=== PATIENT | male | born 1955 | race African-American/Black ===

== ENCOUNTER → 2017-07-08 12:14 | Outpatient (CLI) | payer MEDICARE, MEDICAID, SELFPAY ==
[2017-07-08 14:58] LABS: Absolute Lymphocyte Count 4.71 X10^3/ul (0.83-4.51); Basophil# 0.02 X10^3/uL; Basophil% 0.2 % (0-1); Eosinophil# 0.13 X10^3/uL; Eosinophils% 1.3 % (0-5); Hematocrit 48.8 % (40-54); Hemoglobin 15.5 g/dl (13.0-16.5); Lymphocyte # 4.71 X10^3/ul (4.0); Lymphocyte % 47.8 % (19-41); Mean Corp Hgb Conc 31.8 g/gl (32-36); Mean Corpuscular Hgb 27.7 pg (27.0-32.0); Mean Corpuscular Volume 87.3 fL (80-94); Mean Platelet Vol. 10.2 fl (6.2-12.0); Monocyte# 0.97 X10^3/uL; Monocyte% 9.8 % (0-10); Neutrophil # 3.98 X10^3/uL (2.7-7.7); Neutrophil % 40.5 % (47-70); POSITIVE COUNT NO; POSITIVE DIFFERENTIAL NO; POSITIVE MORPHOLOGY NO; Platelet Count 364 K/mm3 (150-450); RBC Distribution Width CV 14.2 % (11.6-14.6); RBC Distribution Width SD 45.2 fl (35.1-43.9); Red Blood Count 5.59 M/mm3 (4.6-6.2); White Blood Count 9.9 K/mm3 (4.4-11.0)
[2017-07-08 15:33] LABS: AST(SGOT) 37 U/L (15-37); Alanine Aminotransfer ALT/SGPT 57 U/L (16-61); Alkaline Phosphatase 49 U/L (45-117); Anion Gap 9 (5-15); BUN 20 mg/dL (7-18); Calcium,Total 9.4 mg/dL (8.5-10.1); Chloride 104 mmol/L (98-107); Creatinine, Serum 1.11 mg/dL (0.70-1.30); EST Glomerular Filtration Rate 72 mL/min (>60); Est Glom Filt Rate - Afr Amer 87 mL/min (>60); Globulin 3.9 g/dL (2.2-4.2); Glucose 112 mg/dL (74-106); PSA,Total - Annual Screen 0.73 ng/mL (0.00-4.00); Potassium 4.1 mmol/L (3.5-5.1); Protein, Total 7.9 g/dL (6.4-8.2); Sodium Level 138 mmol/L (136-145); Thyroid Stim Hormone (TSH) 2.54 uIU/mL (0.358-3.74)
[2017-07-09 08:53] LABS: Hep C Antibodies <0.1 s/co ratio (0.0-0.9)
== END ==
PROVIDERS: Family Provider Family Medicine Geriatric Medicine; PCP Family Medicine Geriatric Medicine; Visit Provider Family Medicine Geriatric Medicine
DX: I10 Essential (primary) hypertension (principal); F52.8 Other sexual dysfunction not due to a substance or known physiological condition; Z12.5 Encounter for screening for malignant neoplasm of prostate; Z13.89 Encounter for screening for other disorder
CPT/HCPCS: 36415; 80053; 84153; 84403; 84443; 85025; 86803; G0103

== ENCOUNTER → 2018-01-08 09:31 | Outpatient (CLI) | payer MEDICARE, MEDICAID, SELFPAY ==
[2018-01-08 12:25] LABS: Absolute Lymphocyte Count 4.23 X10^3/ul (0.83-4.51); Basophil# 0.02 X10^3/uL; Basophil% 0.2 % (0-1); Eosinophils% 0.9 % (0-5); Hematocrit 45.3 % (40-54); Hemoglobin 14.9 g/dl (13.0-16.5); Lymphocyte # 4.23 X10^3/ul (4.0); Lymphocyte % 36.7 % (19-41); Mean Corp Hgb Conc 32.9 g/gl (32-36); Mean Corpuscular Hgb 27.7 pg (27.0-32.0); Mean Corpuscular Volume 84.4 fL (80-94); Mean Platelet Vol. 10.3 fl (6.2-12.0); Monocyte# 1.11 X10^3/uL; Monocyte% 9.6 % (0-10); Neutrophil # 6.04 X10^3/uL (2.7-7.7); Neutrophil % 52.3 % (47-70); POSITIVE COUNT NO; POSITIVE DIFFERENTIAL NO; POSITIVE MORPHOLOGY NO; Platelet Count 338 K/mm3 (150-450); RBC Distribution Width CV 14.6 % (11.6-14.6); RBC Distribution Width SD 44.1 fl (35.1-43.9); Red Blood Count 5.37 M/mm3 (4.6-6.2); White Blood Count 11.5 K/mm3 (4.4-11.0)
[2018-01-08 12:54] LABS: AST(SGOT) 35 U/L (15-37); Alanine Aminotransfer ALT/SGPT 49 U/L (16-61); Albumin, Serum 4.2 g/dL (3.2-5.0); Alkaline Phosphatase 46 U/L (45-117); Anion Gap 12 (5-15); BUN 20 mg/dL (7-18); BUN/Creat Ratio 18.9 RATIO (10-20); Calcium,Total 9.8 mg/dL (8.5-10.1); Chloride 103 mmol/L (98-107); Creatinine, Serum 1.06 mg/dL (0.70-1.30); EST Glomerular Filtration Rate 76 mL/min (>60); Est Glom Filt Rate - Afr Amer 91 mL/min (>60); Globulin 4.2 g/dL (2.2-4.2); Glucose 108 mg/dL (74-106); Potassium 3.8 mmol/L (3.5-5.1); Protein, Total 8.4 g/dL (6.4-8.2); Sodium Level 137 mmol/L (136-145); Thyroid Stim Hormone (TSH) 1.96 uIU/mL (0.358-3.74)
== END ==
PROVIDERS: Family Provider Family Medicine Geriatric Medicine; PCP Family Medicine Geriatric Medicine; Visit Provider Family Medicine Geriatric Medicine
DX: I10 Essential (primary) hypertension (principal); F52.8 Other sexual dysfunction not due to a substance or known physiological condition
CPT/HCPCS: 36415; 80053; 84403; 84443; 85025

== ENCOUNTER → 2018-07-09 09:16 | Outpatient (CLI) | payer MEDICARE, SELFPAY ==
[2018-07-09 13:02] LABS: Absolute Lymphocyte Count 3.63 X10^3/ul (0.83-4.51); Absolute Neutrophil Count 4.4 X10^3/uL (2.0-7.7); Basophil# 0.04 X10^3/uL; Basophil% 0.4 % (0-1); Eosinophil# 0.15 X10^3/uL; Eosinophils% 1.6 % (0-5); Hemoglobin 14.8 g/dl (13.0-16.5); Lymphocyte # 3.63 X10^3/ul (4.0); Lymphocyte % 38.5 % (19-41); Mean Corp Hgb Conc 32.9 g/gl (32-36); Mean Corpuscular Hgb 27.4 pg (27.0-32.0); Mean Corpuscular Volume 83.2 fL (80-94); Mean Platelet Vol. 10.1 fl (6.2-12.0); Monocyte# 1.16 X10^3/uL; Monocyte% 12.3 % (0-10); Neutrophil # 4.44 X10^3/uL (2.7-7.7); Platelet Count 379 K/mm3 (150-450); RBC Distribution Width CV 15.4 % (11.6-14.6); RBC Distribution Width SD 46.6 fl (35.1-43.9); Red Blood Count 5.41 M/mm3 (4.6-6.2); White Blood Count 9.4 K/mm3 (4.4-11.0)
[2018-07-09 13:03] LABS: POSITIVE COUNT NO; POSITIVE DIFFERENTIAL NO; POSITIVE MORPHOLOGY NO
[2018-07-09 13:32] LABS: ALB/GLOB Ratio 1.1 RATIO (0.9-2.4); AST(SGOT) 34 U/L (15-37); Alanine Aminotransfer ALT/SGPT 51 U/L (16-61); Albumin, Serum 4.1 g/dL (3.2-5.0); Alkaline Phosphatase 54 U/L (45-117); Anion Gap 13 (5-15); BUN 16 mg/dL (7-18); BUN/Creat Ratio 17.5 RATIO (10-20); Calcium,Total 9.4 mg/dL (8.5-10.1); Chloride 102 mmol/L (98-107); Creatinine, Serum 0.91 mg/dL (0.70-1.30); EST Glomerular Filtration Rate 90 mL/min (>60); Est Glom Filt Rate - Afr Amer 108 mL/min (>60); Globulin 3.8 g/dL (2.2-4.2); Glucose 96 mg/dL (74-106); Potassium 3.8 mmol/L (3.5-5.1); Protein, Total 7.9 g/dL (6.4-8.2); Sodium Level 139 mmol/L (136-145); Thyroid Stim Hormone (TSH) 1.67 uIU/mL (0.358-3.74)
== END ==
PROVIDERS: Family Provider Family Medicine Geriatric Medicine; PCP Family Medicine Geriatric Medicine; Visit Provider Family Medicine Geriatric Medicine
DX: I10 Essential (primary) hypertension (principal); F52.8 Other sexual dysfunction not due to a substance or known physiological condition; Z12.5 Encounter for screening for malignant neoplasm of prostate
CPT/HCPCS: 36415; 80053; 84153; 84403; 84443; 85025; G0103

== ENCOUNTER → 2019-01-05 08:44 | Outpatient (CLI) | payer MEDICARE, SELFPAY ==
[2019-01-05 11:27] LABS: Absolute Lymphocyte Count 3.35 X10^3/uL (0.83-4.51); Absolute Neutrophil Count 4.4 X10^3/uL (2.0-7.7); Basophil# 0.04 X10^3/uL; Basophil% 0.4 % (0-1); Eosinophil# 0.09 X10^3/uL; Hematocrit 43.5 % (40-54); Hemoglobin 14.1 g/dL (13.0-16.5); Lymphocyte # 3.35 X10^3/ul (4.0); Lymphocyte % 37.6 % (19-41); Mean Corp Hgb Conc 32.4 g/dL (32-36); Mean Corpuscular Hgb 27.8 pg (27.0-32.0); Mean Corpuscular Volume 85.6 fL (80-94); Mean Platelet Vol. 9.9 fl (6.2-12.0); Monocyte# 1.03 X10^3/uL; Monocyte% 11.6 % (0-10); NRBC Flagged by Analyzer 0 % (0-5); Neutrophil # 4.35 X10^3/uL (2.7-7.7); Platelet Count 348 K/mm3 (150-450); RBC Distribution Width CV 13.3 % (11.6-14.6); RBC Distribution Width SD 41.9 fl (35.1-43.9); Red Blood Count 5.08 M/mm3 (4.6-6.2); White Blood Count 8.9 K/mm3 (4.4-11.0)
[2019-01-05 11:48] LABS: Vitamin D,25 Hydroxy 29.8 ng/mL (29.95-100.01)
[2019-01-05 11:53] LABS: AST(SGOT) 29 U/L (15-37); Alanine Aminotransfer ALT/SGPT 43 U/L (16-61); Alkaline Phosphatase 48 U/L (45-117); Anion Gap 8 (5-15); BUN 17 mg/dL (7-18); BUN/Creat Ratio 18.2 RATIO (10-20); Calcium,Total 9.7 mg/dL (8.5-10.1); Chloride 103 mmol/L (98-107); Creatinine, Serum 0.94 mg/dL (0.70-1.30); EST Glomerular Filtration Rate 87 mL/min (>60); Est Glom Filt Rate - Afr Amer 105 mL/min (>60); Globulin 4.1 g/dL (2.2-4.2); Glucose 113 mg/dL (74-106); Potassium 3.7 mmol/L (3.5-5.1); Protein, Total 8.1 g/dL (6.4-8.2); Sodium Level 137 mmol/L (136-145); Thyroid Stim Hormone (TSH) 1.88 uIU/mL (0.358-3.74)
== END ==
PROVIDERS: Family Provider Family Medicine Geriatric Medicine; PCP Family Medicine Geriatric Medicine; Visit Provider Family Medicine Geriatric Medicine
DX: I10 Essential (primary) hypertension (principal); E55.9 Vitamin D deficiency, unspecified; F52.8 Other sexual dysfunction not due to a substance or known physiological condition
CPT/HCPCS: 36415; 80053; 82306; 84403; 84443; 85025

== ENCOUNTER → 2019-07-10 08:38 | Outpatient (CLI) | payer MEDICARE, SELFPAY ==
[2019-07-10 13:03] LABS: Absolute Lymphocyte Count 3.39 X10^3/uL (0.83-4.51); Absolute Neutrophil Count 4.1 X10^3/uL (2.0-7.7); Basophil# 0.03 X10^3/uL; Basophil% 0.3 % (0-1); Eosinophil# 0.09 X10^3/uL; Hematocrit 45.9 % (40-54); Lymphocyte # 3.39 X10^3/ul (4.0); Lymphocyte % 38.3 % (19-41); Mean Corp Hgb Conc 32.7 g/dL (32-36); Mean Corpuscular Hgb 28.2 pg (27.0-32.0); Mean Corpuscular Volume 86.3 fL (80-94); Mean Platelet Vol. 9.5 fl (6.2-12.0); Monocyte# 1.24 X10^3/uL; NRBC Flagged by Analyzer 0 % (0-5); Neutrophil # 4.07 X10^3/uL (2.7-7.7); Neutrophil % 46.2 % (47-70); Platelet Count 372 K/mm3 (150-450); RBC Distribution Width CV 13.8 % (11.6-14.6); RBC Distribution Width SD 42.9 fl (35.1-43.9); Red Blood Count 5.32 M/mm3 (4.6-6.2); White Blood Count 8.8 K/mm3 (4.4-11.0)
[2019-07-10 13:37] LABS: ALB/GLOB Ratio 1.1 RATIO (0.9-2.4); AST(SGOT) 33 U/L (15-37); Alanine Aminotransfer ALT/SGPT 49 U/L (16-61); Albumin, Serum 4.3 g/dL (3.2-5.0); Alkaline Phosphatase 48 U/L (45-117); Anion Gap 10 (5-15); BUN 21 mg/dL (7-18); BUN/Creat Ratio 21.4 RATIO (10-20); Calcium,Total 9.7 mg/dL (8.5-10.1); Chloride 103 mmol/L (98-107); Creatinine, Serum 0.98 mg/dL (0.70-1.30); EST Glomerular Filtration Rate 82 mL/min (>60); Est Glom Filt Rate - Afr Amer 99 mL/min (>60); Glucose 97 mg/dL (74-106); PSA,Total - Annual Screen 0.78 ng/mL (0.00-4.00); Potassium 3.8 mmol/L (3.5-5.1); Protein, Total 8.3 g/dL (6.4-8.2); Sodium Level 137 mmol/L (136-145); Thyroid Stim Hormone (TSH) 2.86 uIU/mL (0.358-3.74)
== END ==
PROVIDERS: PCP Family Medicine Geriatric Medicine; Referring Provider Family Medicine Geriatric Medicine; Visit Provider Family Medicine Geriatric Medicine
DX: I10 Essential (primary) hypertension (principal); Z12.5 Encounter for screening for malignant neoplasm of prostate; F52.8 Other sexual dysfunction not due to a substance or known physiological condition
CPT/HCPCS: 36415; 80053; 84153; 84403; 84443; 85025; G0103

== ENCOUNTER → 2020-01-15 09:34 | Outpatient (CLI) | payer MEDICARE, SELFPAY ==
[2020-01-15 12:11] LABS: Absolute Lymphocyte Count 4.26 X10^3/uL (0.83-4.51); Basophil# 0.06 X10^3/uL; Basophil% 0.5 % (0-1); Eosinophil# 0.14 X10^3/uL; Eosinophils% 1.3 % (0-5); Hematocrit 42.9 % (40-54); Hemoglobin 13.8 g/dL (13.0-16.5); Lymphocyte # 4.26 X10^3/ul (4.0); Lymphocyte % 38.8 % (19-41); Mean Corp Hgb Conc 32.2 g/dL (32-36); Mean Corpuscular Hgb 27.7 pg (27.0-32.0); Mean Platelet Vol. 9.6 fl (6.2-12.0); Monocyte% 13.7 % (0-10); NRBC Flagged by Analyzer 0 % (0-5); Neutrophil # 4.98 X10^3/uL (2.7-7.7); Neutrophil % 45.3 % (47-70); Platelet Count 365 K/mm3 (150-450); RBC Distribution Width SD 43.7 fl (35.1-43.9); Red Blood Count 4.99 M/mm3 (4.6-6.2)
[2020-01-15 13:02] LABS: ALB/GLOB Ratio 1.1 RATIO (0.9-2.4); AST(SGOT) 36 U/L (15-37); Alanine Aminotransfer ALT/SGPT 40 U/L (16-61); Albumin, Serum 3.8 g/dL (3.2-5.0); Alkaline Phosphatase 47 U/L (45-117); Anion Gap 9 (5-15); BUN 19 mg/dL (7-18); BUN/Creat Ratio 19.9 RATIO (10-20); Calcium,Total 9.2 mg/dL (8.5-10.1); Chloride 103 mmol/L (98-107); Creatinine, Serum 0.96 mg/dL (0.70-1.30); EST Glomerular Filtration Rate 85 mL/min (>60); Est Glom Filt Rate - Afr Amer 102 mL/min (>60); Globulin 3.6 g/dL (2.2-4.2); Glucose 100 mg/dL (74-106); Potassium 4.1 mmol/L (3.5-5.1); Protein, Total 7.4 g/dL (6.4-8.2); Sodium Level 136 mmol/L (136-145)
== END ==
PROVIDERS: PCP Family Medicine Geriatric Medicine; Visit Provider Family Medicine Geriatric Medicine
DX: I10 Essential (primary) hypertension (principal); F52.8 Other sexual dysfunction not due to a substance or known physiological condition
CPT/HCPCS: 36415; 80053; 84403; 84443; 85025

== ENCOUNTER → 2020-07-14 09:41 | Outpatient (CLI) | payer MEDICARE, MEDICAID, SELFPAY ==
--- NOTE | 2020-07-14 09:43 | RAD_ITS ---
STUDY: X-RAY - LUMBAR SPINE REASON FOR EXAM: Male, 65 years old. SCIATICA TECHNIQUE: 3 view(s) of the lumbar spine were obtained. COMPARISON: None FINDINGS: There is straightening of the normal lumbar lordosis. There is no substantial scoliosis. There is a normal alignment of the vertebrae. Marked degree of disc space narrowing with subchondral sclerosis and spondylosis at the L5-S1 level. There is atherosclerotic calcification of the abdominal aorta without a demonstrated aneurysm. Calcification of the vas deferens. Calcified phleboliths are seen in the pelvis. RAD/Lumbar Spine 2 or 3 Views IMPRESSION: Moderate degree of disc space narrowing and spondylosis at the L5-S1 level. Loss of the normal lumbar lordosis. Electronically Signed: Jagdeep Cosby MD at 10:43 EST , Service support ,
== END ==
PROVIDERS: PCP Family Medicine Geriatric Medicine; Visit Provider Family Medicine Geriatric Medicine
DX: M54.30 Sciatica, unspecified side (principal)
CPT/HCPCS: 72100

== ENCOUNTER 2020-10-17 14:30 | Outpatient (RCR) | payer MEDICARE, MEDICAID, SELFPAY ==
--- NOTE | 2020-07-25 17:17 | HP.PTEVAL ---
Patient's Visit Information CLIFF GALVAN is a 65 year old M referred to Physical Therapy by Dr. Suleiman Quach MD with a diagnosis of SCIATICA. Date of Evaluation: 07/25/20 Physical Therapist: Diamond Smyth PT, Cert MDT - Visit Plan Frequency: 2-3x /Week Duration: 4-6 Weeks Plan: AQUATIC THERAPY FOR PAIN RELIEF, POSTURE CORRECTION/STRENGTHENING, INSTRUCTION IN APPROPRIATE BODY MECHANICS AND ACTIVITY MODIFICATIONS. DLS STARTING WITH A NEUTRAL SPINE PROGRESSING ROM TOLERATED. SHIRA LE ROM, STRETCHING AND STRENGTHENING. HEP INSTRUCTION. - Subjective Work/Leisure: UNEMPLOYEED. Disability: YES - THROAT CANCER AND LUNG CANCER. Present symptoms: SHIRA LOW BACK PAIN. RIGHT HIP, THIGH AND LEG PAIN. R LE NUMBNESS AND TINGLING. PATIENT REPORTS HIS R LE NUMBNESS GOES ALL THE WAY TO HIS TOES. Present since: ABOUT A YEAR AGO. Pain Scale: WORST 10/10, LEAST 7/10. Currently: 9/10. Commenced as a result of: HELPING NIECE MOVE. STATES HE WAS CARRYING TOO MUCH UP AND DOWN THE STEPS AND HE COULDN'T MOVE AFTERWARDS. Symptoms at onset: LOW BACK. Worse: STANDING UP, LIFTING - LIKE TRYING TO LIFT A CASE OF WATER, BENDING OVER, WALKING, GETTING DRESSED. Better: PAIN MEDICATION, SALLY KILLIAN, RECLINER. Disturbed sleep: YES. Previous history/Previous treatment: CHRONIC LBP. NO BACK SURGERY. H/O EVERARDO'S WITH THE LAST ONE BEING ABOUT 8 YEARS AGO BECAUSE THEY MOVED THE OFFICE. H/O GOING TO THE [facility]IROP[facility] A LOT. PATIENT REPORTS BACK SURGERY HAS BEEN RECOMMENDED IN THE PAST AND HE JUST DOESN'T WANT BACK SURGERY. Treatment this episode: PT REFERRAL. Coughing/sneezing/straining: NEGATIVE. Gait: TIME AND DISTANCE LIMITED DUE TO PAIN. PATIENT REPORTS THAT WHEN HE IS WALKING HE HAS TO STOP AND HOLD ON TO SOMETHING FOR AWHILE BEFORE HE CAN KEEP GOING BECAUSE HIS BACK AND R LEG GETS NUMB AND HE FEELS LIKE HIS LEGS ARE GOING TO GO OUT ON HIM. PATIENT REPORTS HE USE TO WALK ABOUT A MILE TWICE A DAY UNTIL THIS HAPPEND. Difficulty initiating urinatin: NO. Accidents: NO. Unexplained weight loss: NO. Imaging: RECENT LUMBAR X-RAY: Moderate degree of disc space narrowing and spondylosis at the L5-S1 level. Loss of the normal lumbar lordosis. REMOTE LUMBAR MRI 2014: IMPRESSION: Degenerative disc disease and spondylosis, again noted to predominantly. affect the L5-S1 intervertebral disc level, where there is redemonstration. of mild retrolisthesis, diffuse annular bulge/disc herniation, endplate. spondylosis and mild facet arthrosis, resulting in mild right greater than. left lateral recess and central canal stenosis and moderate bilateral. intervertebral neural foraminal narrowing with likely exiting nerve root. impingement. Please see level by level details above. Mild heterogeneity of marrow signal intensity may represent senescent. change/normal variant, but appears slightly more prominent than on the. previous study. If there is any clinical concern for subtle osseous. metastatic disease in this patient with known malignancies, consider. correlation with radionuclide bone scan. Presumed small bilateral renal cysts, which could be further evaluated with. ultrasound, if clinically indicated. PMH: H/0 THROAT CANCER - ABOUT 21 YEARS AGO. LUNG CANCER - ABOUT 20 YEARS AGO. BOTH THROAT AND LUNG CANCER WERE TREATED WITH SURGERY. ALSO TREATED WITH CHEMO AND RADIATION. NOT DIABETIC. NO STROKES. NO HEART PROBLEMS. - Objective Sitting/Standing Posture: POOR. Lordosis: REDUCED. Active Correction of posture: WORSE. Other Observations: SLOW ANTALGIC INDEP GAIT INTO PT WITH A MILD LIMP ON THE RIGHT LE, NO AD'S AND NO LOB. GAIT X APPROX 300 FEET FROM WAITING ROOM TO TRATMENT ROOM WAS CHALLENGING FOR PATIENT. DIFFICULTY RISING FROM SITTING AND INITIATING GAIT AFTER SITTING. UE DEPENDENT TO TRANSFER FROM SIT TO STAND. Motor deficit: L LE: 5/5 WITH MMT'ING EXCEPT HIP GRADED 4/5. RIGHT LE: HIP 4-/5, KNEE EXT 4/5, KNEE FLEX 4/5, ANKLE DORSIFLEX 5/5. Sensory deficit: LLE INTACT. R LE: PATIENT REPORTS TINGLING WITH LIGHT TOUCH SENSATION TESTING OF ENTIRE RIGHT LE TO THE FOOT. ROM deficit: TIGHT SHIRA HIP FLEXORS, HS'S AND GASTROC SOLEUS COMPLEX'S. Reflexes: 2/3 SHIRA LE'S. Dural Signs: POSITIVE SHIRA LE'S. Lumbar mvmt loss: flex - AVA. ext - AVA. R SG - AVA. L SG - AVA. PATIENT WITH C/O INCREASED PAIN WITH LUMBAR ROM TESTING ALL PLANES. Core strength: POOR. Palpation: TENDERNESS WITH PALPATION OF RIGHT LUMBAR PARASPINALS BUT NOT TENDER IN THE LEFT LOW BACK OR EVEN ON THE LUMBAR SPINE OR SACRUM. TREATMENT: NEUROMUSCULAR REEDUCATION - RETRAINING OF MVMT AND POSTURE FOR SITTING, LYING AND STANDING ACTIVITIES. INSTRUCTED PATIENT TO GO TO THE EMERGENCY ROOM IF CAUDA EQUINA SX'S OR SPINAL CORD SX'S OCCUR. PATIENT COMMUNICATED A GOOD UNDERSTANDING OF ALL INSTRUCTIONS AFTER GIVEN. PATIENT IS PLEASANT AND COOPERATIVE TO WORK WITH BUT DOES HAVE SOME TROUBLE PROJECTING HIS VOICE. - Goals Goal 1:: DECREASE C/O LOW BACK AND R LE SX'S. Goal Time Frame: 4-6 Weeks Goal 2:: IMPROVE PERSONAL CARE, LIFTING, WALKING, STANDING, SITTING, SLEEP, SOCIAL LIFE, TRAVEL AND HOMEMAKING FUNCTION. Goal Time Frame: 4-6 Weeks Goal 3:: INSTRUCT IN PROPHYLAXIS Goal Time Frame: 4-6 Weeks - Anticipated Interventions Patient/Client Instruction: Educate patient on: Condition, Plan of Care, Risk Factors For the Purpose of:: To improve self management Therapeutic Exercise to Include: Strength training, Body mechanics, Postural training, Flexibilty training, Gait and locomotor training, Neuromotor development, In an aquatic setting, Dynamic Lumbar Stabilization For the Purpose of:: To decrease pain, To improve muscle performance and motor function, To increase tolerance to activity/condition/position, To improve ability of physical actions for home/community/work/leisure, To improve gait and locomotor functions Thank you for the opportunity to evaluate your patient. For Medicare and Medicare HMO plans, please review the plan of care and approve it. It will need to be FAXED BACK to us at [phone] for Medicare purposes. For Medicare only, by signing this I certify the plan of care. Please let me know if there are questions or concerns regarding this plan of care. Physician Signature: Date:
--- NOTE | 2020-08-26 14:54 | HP.PTREVAL ---
Dr. Suleiman Quach MD, It has been my pleasure to treat CLIFF GALVAN over the last 10 visits for SCIATICA. Please see the progress note below for an update on the physical therapy plan of care! Subjective: PATIENT REPORTS HE STILL HAS A LOT OR RIGHT BACK, HIP AND THIGH PAIN AND A LITTLE ON THE LEFT. PATIENT REPORTS HE USUALLY FEELS WORSE AFTER THE THERAPY SESSIONS BECAUSE HE GETS BENT OVER LIKE AN OLD MAN. PATIENT REPORTS HE FEELS IT IS STILL TOO COLD OUTSIDE TO DO AQUATIC THERAPY. PATIENT REPORTS HIS HEP ACTUALLY EASES HIS PAIN SOME AND HE IS DOING THE EX'S DAILY. Objective/Function: PATIENT WAS SEEN TODAY FOR RE-ASSESSMENT OF PROGRESS TOWARD THE SET PT GOALS AND THE NEED FOR FURTHER PHYSICAL THERAPY VS READINESS FOR DISCHARGE. PATIENT IS NOT IMPROVING BUT IS TOLERATING A HEP WITH SOME TEMPORARY BENEFIT. HE MAY BENEFIT FROM US TREATMENT WITH SLOW HEP PROGRESSION AND HE IS AGREEABLE TO TRYING. HE MAY ALSO BE A GOOD AQUATIC THERAPY CANDIDATE BUT HE IS REFUSING DUE TO THE CURRENT COLD WEATHER. HE TOLERATED US AND NEW EX'S WELL TODAY. UPON EXAM TODAY: PATIENT HAS. SLOW ANTALGIC INDEP GAIT INTO PT WITH A MILD LIMP ON THE RIGHT LE, NO AD'S AND NO LOB. GAIT X APPROX 300 FEET FROM WAITING ROOM TO TRATMENT ROOM WAS CHALLENGING FOR PATIENT. DIFFICULTY RISING FROM SITTING AND INITIATING GAIT AFTER SITTING. UE DEPENDENT TO TRANSFER FROM SIT TO STAND. Motor deficit: L LE: 5/5 WITH MMT'ING EXCEPT HIP GRADED 4/5. RIGHT LE: HIP 4-/5, KNEE EXT 5/5, KNEE FLEX 5/5, ANKLE DORSIFLEX 5/5. Sensory deficit: LLE INTACT. R LE: PATIENT REPORTS TINGLING WITH LIGHT TOUCH SENSATION TESTING OF ENTIRE RIGHT LE TO THE FOOT. ROM deficit: TIGHT SHIRA HIP FLEXORS, HS'S AND GASTROC SOLEUS COMPLEX'S. Dural Signs: POSITIVE SHIRA LE'S. Lumbar mvmt loss: flex - AVA. ext - AVA. R SG - AVA. L SG - AVA. PATIENT WITH C/O INCREASED PAIN WITH LUMBAR ROM TESTING ALL PLANES. Core strength: POOR. Palpation: TENDERNESS WITH PALPATION OF RIGHT LUMBAR PARASPINALS BUT NOT TENDER IN THE LEFT LOW BACK OR EVEN ON THE LUMBAR SPINE OR SACRUM. Plan Plan: CONT LAND PT LESS AGGRESSIVELY AND ADD US TO LOW BACK FOR PAIN RELIEF. POSTURE CORRECTION/STRENGTHENING, INSTRUCTION IN APPROPRIATE BODY MECHANICS AND ACTIVITY MODIFICATIONS. DLS STARTING WITH A NEUTRAL SPINE PROGRESSING ROM TOLERATED. SHIRA LE ROM, STRETCHING AND STRENGTHENING. HEP INSTRUCTION. Goals Goal 1:: DECREASE C/O LOW BACK AND R LE SX'S. Goal Time Frame: 4-6 Weeks Goal Progress: Not Progressing Goal 2:: IMPROVE PERSONAL CARE, LIFTING, WALKING, STANDING, SITTING, SLEEP, SOCIAL LIFE, TRAVEL AND HOMEMAKING FUNCTION. Goal Time Frame: 4-6 Weeks Goal Progress: Not Progressing Goal 3:: INSTRUCT IN PROPHYLAXIS Goal Time Frame: 4-6 Weeks Goal Progress: Not Progressing Anticipated Interventions Patient/Client Instruction: Educate patient on: Condition, Plan of Care, Risk Factors For the Purpose of:: To improve self management Therapeutic Exercise to Include: Strength training, Body mechanics, Postural training, Flexibilty training, Gait and locomotor training, Neuromotor development, In an aquatic setting, Dynamic Lumbar Stabilization For the Purpose of:: To decrease pain, To improve muscle performance and motor function, To increase tolerance to activity/condition/position, To improve ability of physical actions for home/community/work/leisure, To improve gait and locomotor functions Please do not hesitate to contact me at [phone] by phone or if you have questions or concerns regarding this new plan of care! Sincerely, Diamond Smyth PT, Cert MDT
--- NOTE | 2020-10-17 15:05 | HP.PTDCSUM ---
It has been my pleasure to treat CLIFF GALVAN referred by Dr. Suleiman Quach MD, with the diagnosis of SCIATICA for a total of 16 visit(s). Discharge Date: 10/17/20 Please see the following information for a summary of their discharge status. Subjective: PATIENT REPORTS HE HASN'T BEEN ABLE TO GET IN TO SEE DR. QUACH FOR FOLLOW UP AND HE IS WAITING TO HEAR BACK FROM THEM. PATIENT REPORTS HE MOVED SOME FURNITURE SATURDAY AND SATURDAY HE COULDN'T MOVE. BETTER TODAY. GENERALLY DOING HEP DAILY. PATIENT REPORTS NONE OF THE EX'S MAKE HIM WORSE BUT HE STILL HAS PAIN. PATIENT REPORTS THAT WHEN HE IS IN PAIN, DOING HIS EX'S HELPS SOME. LB Pain Intensity (Out of 10): 5 R LEG Pain Intensity (Out of 10): 0 R WRIST Pain Intensity (Out of 10): 0 % Improvement: 50 Objective/Function: PATIENT WAS SEEN TODAY FOR RE-ASSESSMENT OF PROGRESS TOWARD THE SET PT GOALS AND THE NEED FOR FURTHER PHYSICAL THERAPY VS READINESS FOR DISCHARGE. PATIENT IS NOT IMPROVING BUT IS TOLERATING A HEP WITH SOME TEMPORARY BENEFIT. HE IS NOW INDEP WITH A HEP AND IS APPROPRIATE FOR FOLLOW UP WITH DR. QUACH. IF DR. QUACH FEELS HE IS A GOOD CANDIDATE TO CONTINUE PT THEN I WOULD RECOMMEND A TRIAL OF AQUATIC THERAPY. PATIENT HAS REFUSED AQUATIC THERAPY IN THE PAST DUE TO THE WEATHER BUT NOW THAT IT IS WARMER HE IS WILLING TO CONSIDER. HE HAS TOLERATED US AND SLOW PROGRESSION OF HEP WELL BUT HIS IMPROVEMENT HAS PLATEAUED. UPON EXAM TODAY: PATIENT HAS SLOW ANTALGIC INDEP GAIT INTO PT WITH A MILD LIMP ON THE RIGHT LE, NO AD'S AND NO LOB. PATIENT DOES NOT DEMONSTRATE DIFFICULTY WITH GAIT X APPROX 300 FEET FROM WAITING ROOM TO TRATMENT ROOM TODAY. INDEP TRANSFER SIT TO STAND WITHOUT UE ASSIST NOW. Motor deficit: L LE: 5/5 WITH MMT'ING EXCEPT HIP GRADED 4/5. RIGHT LE: HIP 4-/5, KNEE EXT 5/5, KNEE FLEX 5/5, ANKLE DORSIFLEX 5/5. Sensory deficit: LLE INTACT. R LE: PATIENT REPORTS TINGLING WITH LIGHT TOUCH SENSATION TESTING OF ENTIRE RIGHT LE TO THE FOOT. ROM deficit: TIGHT SHIRA HIP FLEXORS, HS'S AND GASTROC SOLEUS COMPLEX'S. Dural Signs: POSITIVE L LE AND NEGATIVE R LE TODAY. Lumbar mvmt loss: flex - MOD. ext - AVA. R SG - MOD. L SG - MOD. PATIENT WITH C/O INCREASED PAIN WITH LUMBAR ROM TESTING ALL PLANES BUT MVMT HAS IMPROVED SINCE LAST RE-CHECK. Core strength: POOR. Palpation: TENDERNESS WITH PALPATION OF RIGHT LUMBAR PARASPINALS BUT NOT TENDER IN THE LEFT LOW BACK OR EVEN ON THE LUMBAR SPINE OR SACRUM. Goal 1:: DECREASE C/O LOW BACK AND R LE SX'S. Goal Progress: Goal Met Goal 2:: IMPROVE PERSONAL CARE, LIFTING, WALKING, STANDING, SITTING, SLEEP, SOCIAL LIFE, TRAVEL AND HOMEMAKING FUNCTION. Goal Progress: Goal Met Goal 3:: INSTRUCT IN PROPHYLAXIS Goal Progress: Goal Met Plan: D/C TO FOLLOW UP WITH DR. QUACH DUE TO LACK OF CONTINUED IMPROVEMENT. PATIENT AGREEABLE. CONSIDER AQUATIC THERAPY IF PATIENT RETURNS. If there are questions or concerns regarding this patient's physical therapy, please feel free to call me at [phone]. Thank you for the referral of this patient. Sincerely, Diamond Smyth, PT, Cert MDT
== END 2020-10-17 19:00 | disposition home or self-care (01) ==
LOC: PT 14:30
PROVIDERS: PCP Family Medicine Geriatric Medicine; Referring Provider Family Medicine Geriatric Medicine; Visit Provider Family Medicine Geriatric Medicine
DX: M54.30 Sciatica, unspecified side (principal)
CPT/HCPCS: 97035; 97110; 97112; 97162; 97164; 97530

== ENCOUNTER → 2021-01-13 09:33 | Outpatient (CLI) | payer MEDICARE, MEDICAID, SELFPAY ==
[2021-01-13 09:52] LABS: Absolute Lymphocyte Count 3.07 X10^3/uL (0.83-4.51); Absolute Neutrophil Count 5.4 X10^3/uL (2.0-7.7); Basophil# 0.06 X10^3/uL; Basophil% 0.6 % (0-1); Eosinophil# 0.16 X10^3/uL; Eosinophils% 1.6 % (0-5); Hematocrit 42.2 % (40-54); Hemoglobin 13.7 g/dL (13.0-16.5); Lymphocyte # 3.07 X10^3/ul (0.83-4.51); Lymphocyte % 30.5 % (19-41); Mean Corp Hgb Conc 32.5 g/dL (32-36); Mean Corpuscular Hgb 27.2 pg (27.0-32.0); Mean Corpuscular Volume 83.9 fL (80-94); Mean Platelet Vol. 7.9 fl (6.2-12.0); Monocyte# 1.35 X10^3/uL; Monocyte% 13.4 % (0-10); NRBC Flagged by Analyzer 0.2 % (0-5); Neutrophil # 5.39 X10^3/uL (2.7-7.7); Neutrophil % 53.5 % (47-70); Platelet Count 391 K/mm3 (150-450); RBC Distribution Width CV 14.8 % (11.6-14.6); RBC Distribution Width SD 44.7 fl (35.1-43.9); Red Blood Count 5.03 M/mm3 (4.6-6.2); White Blood Count 10.1 K/mm3 (4.4-11.0)
--- NOTE | 2021-01-13 10:00 | RAD_ITS ---
INDICATION: PAIN EXAMINATION/TECHNIQUE: X-RAY - RIGHT XR Wrist Min 3 Views 3 VIEWS COMPARISON: None. FINDINGS: SOFT TISSUES: No soft tissue swelling or gas. No radiopaque foreign body. BONES/JOINTS: No acute fracture or subluxation.. Unremarkable alignment. Degenerative changes visualized. No sclerotic or destructive changes observed. RAD/Wrist min 3 Views IMPRESSION: Degenerative changes, no acute osseous abnormality is seen. Electronically Signed: Errol Bergeron MD at 12:14 EDT Tel , Service support ,
[2021-01-13 10:28] LABS: Vitamin D,25 Hydroxy 39.2 ng/mL
[2021-01-13 10:34] LABS: AST(SGOT) 39 U/L (15-37); Alanine Aminotransfer ALT/SGPT 53 U/L (16-61); Albumin, Serum 3.9 g/dL (3.2-5.0); Alkaline Phosphatase 45 U/L (45-117); Anion Gap 4 (5-15); BUN 22 mg/dL (7-18); BUN/Creat Ratio 24.5 RATIO (10-20); Calcium,Total 9.4 mg/dL (8.5-10.1); Chloride 100 mmol/L (98-107); EST Glomerular Filtration Rate 91 mL/min (>60); Est Glom Filt Rate - Afr Amer 110 mL/min (>60); Globulin 3.8 g/dL (2.2-4.2); Glucose 105 mg/dL (74-106); Potassium 4.1 mmol/L (3.5-5.1); Protein, Total 7.7 g/dL (6.4-8.2); Sodium Level 132 mmol/L (136-145); Thyroid Stim Hormone (TSH) 1.85 uIU/mL (0.358-3.74)
== END ==
LOC: LAB 09:41 → RAD 09:43
PROVIDERS: PCP Family Medicine Geriatric Medicine; Referring Provider Family Medicine Geriatric Medicine; Visit Provider Family Medicine Geriatric Medicine
DX: M25.531 Pain in right wrist (principal); I10 Essential (primary) hypertension; E55.9 Vitamin D deficiency, unspecified; F52.8 Other sexual dysfunction not due to a substance or known physiological condition
CPT/HCPCS: 36415; 73110; 80053; 82306; 84403; 84443; 85025

== ENCOUNTER 2021-07-20 10:42 | Outpatient (CLI) | payer MEDICARE, MEDICAID, SELFPAY ==
[2021-07-20 12:40] LABS: Absolute Lymphocyte Count 3.91 X10^3/uL (0.83-4.51); Absolute Neutrophil Count 6.4 X10^3/uL (2.0-7.7); Basophil# 0.06 X10^3/uL; Basophil% 0.5 % (0-1); Eosinophils% 0.8 % (0-5); Hematocrit 48.7 % (40-54); Hemoglobin 15.7 g/dL (13.0-16.5); Lymphocyte # 3.91 X10^3/ul (0.83-4.51); Lymphocyte % 32.9 % (19-41); Mean Corp Hgb Conc 32.2 g/dL (32-36); Mean Corpuscular Hgb 27.5 pg (27.0-32.0); Mean Corpuscular Volume 85.4 fL (80-94); Monocyte# 1.33 X10^3/uL; Monocyte% 11.2 % (0-10); NRBC Flagged by Analyzer 0 % (0-5); Neutrophil # 6.43 X10^3/uL (2.7-7.7); Neutrophil % 54.2 % (47-70); Platelet Count 378 K/mm3 (150-450); RBC Distribution Width CV 14.6 % (11.6-14.6); RBC Distribution Width SD 45.6 fl (35.1-43.9); White Blood Count 11.9 K/mm3 (4.4-11.0)
[2021-07-20 13:01] LABS: Vitamin D,25 Hydroxy 29.5 ng/mL
[2021-07-20 13:30] LABS: ALB/GLOB Ratio 1.1 RATIO (0.9-2.4); AST(SGOT) 33 U/L (15-37); Alanine Aminotransfer ALT/SGPT 44 U/L (16-61); Albumin, Serum 4.1 g/dL (3.2-5.0); Alkaline Phosphatase 55 U/L (45-117); Anion Gap 9 (5-15); BUN 12 mg/dL (7-18); BUN/Creat Ratio 10.9 RATIO (10-20); Chloride 99 mmol/L (98-107); EST Glomerular Filtration Rate 72 mL/min (>60); Est Glom Filt Rate - Afr Amer 87 mL/min (>60); Globulin 3.9 g/dL (2.2-4.2); Glucose 109 mg/dL (74-106); Potassium 4.3 mmol/L (3.5-5.1); Sodium Level 135 mmol/L (136-145); Thyroid Stim Hormone (TSH) 0.88 uIU/mL (0.358-3.74)
== END 2021-07-20 23:59 | disposition home or self-care (01) ==
LOC: POLAB3 10:43
PROVIDERS: PCP Family Medicine Geriatric Medicine; Visit Provider Family Medicine Geriatric Medicine
DX: E55.9 Vitamin D deficiency, unspecified (principal); F52.8 Other sexual dysfunction not due to a substance or known physiological condition; I10 Essential (primary) hypertension; Z12.5 Encounter for screening for malignant neoplasm of prostate
CPT/HCPCS: 36415; 80053; 82306; 84153; 84403; 84443; 85025; G0103

== ENCOUNTER → 2022-01-18 | Outpatient (CLI) | payer MEDICARE, MEDICAID, SELFPAY ==
--- NOTE | 2022-01-18 10:12 | RAD_ITS ---
HISTORY: LOW BACK PAIN. TECHNIQUE: XR Spine Lumbar 2 or 3 Views. COMPARISON: 07/14/2020. FINDINGS: VERTEBRAE: Vertebral body heights preserved. Degenerative changes of the posterior elements. ALIGNMENT: No significant anterior or posterior subluxation. INTERVERTEBRAL DISCS: Degenerative endplate sclerosis with osteophytes and moderate-severe intervertebral disc space narrowing at L5-S1 again seen. SOFT TISSUES: Gaseous and stool distention of the colon. RAD/Lumbar Spine 2 or 3 Views IMPRESSION: No acute fracture or dislocation identified in the lumbar spine. Advanced degenerative change at L5-S1. Electronically Signed: Leigh Ann Kumar MD at 11:36 EDT ,
[2022-01-18 12:20] LABS: Absolute Lymphocyte Count 4.04 X10^3/uL (0.83-4.51); Absolute Neutrophil Count 7.6 X10^3/uL (2.0-7.7); Basophil# 0.07 X10^3/uL; Basophil% 0.5 % (0-1); Eosinophil# 0.15 X10^3/uL; Eosinophils% 1.2 % (0-5); Hemoglobin 16.2 g/dL (13.0-16.5); Lymphocyte # 4.04 X10^3/ul (0.83-4.51); Lymphocyte % 31.3 % (19-41); Mean Corp Hgb Conc 33.1 g/dL (32-36); Mean Corpuscular Hgb 27.6 pg (27.0-32.0); Mean Corpuscular Volume 83.5 fL (80-94); Mean Platelet Vol. 9.5 fl (6.2-12.0); Monocyte# 1.02 X10^3/uL; Monocyte% 7.9 % (0-10); NRBC Flagged by Analyzer 0 % (0-5); Neutrophil # 7.57 X10^3/uL (2.7-7.7); Neutrophil % 58.6 % (47-70); Platelet Count 382 K/mm3 (150-450); RBC Distribution Width CV 15.3 % (11.6-14.6); RBC Distribution Width SD 44.9 fl (35.1-43.9); Red Blood Count 5.87 M/mm3 (4.6-6.2); White Blood Count 12.9 K/mm3 (4.4-11.0)
[2022-01-18 12:38] LABS: Vitamin D,25 Hydroxy 26.5 ng/mL
[2022-01-18 12:54] LABS: AST(SGOT) 38 U/L (15-37); Alanine Aminotransfer ALT/SGPT 50 U/L (16-61); Albumin, Serum 3.8 g/dL (3.2-5.0); Alkaline Phosphatase 46 U/L (45-117); Anion Gap 12 (5-15); BUN 20 mg/dL (7-18); BUN/Creat Ratio 19.8 RATIO (10-20); Calcium,Total 9.9 mg/dL (8.5-10.1); Chloride 98 mmol/L (98-107); Creatinine, Serum 1.01 mg/dL (0.70-1.30); EST Glomerular Filtration Rate 79 mL/min (>60); Est Glom Filt Rate - Afr Amer 95 mL/min (>60); Globulin 3.9 g/dL (2.2-4.2); Glucose 179 mg/dL (74-106); Potassium 3.7 mmol/L (3.5-5.1); Protein, Total 7.7 g/dL (6.4-8.2); Sodium Level 134 mmol/L (136-145); Thyroid Stim Hormone (TSH) 2.18 uIU/mL (0.358-3.74)
== END | disposition home or self-care (01) ==
LOC: POLAB3 09:19 → RAD 10:11
PROVIDERS: PCP Family Medicine Geriatric Medicine; Referring Provider Family Medicine Geriatric Medicine; Visit Provider Family Medicine Geriatric Medicine
DX: I10 Essential (primary) hypertension (principal); F52.8 Other sexual dysfunction not due to a substance or known physiological condition; E55.9 Vitamin D deficiency, unspecified; M54.50 Low back pain, unspecified
CPT/HCPCS: 36415; 72100; 80053; 82306; 84403; 84443; 85025

== ENCOUNTER → 2023-02-15 | Outpatient (CLI) | payer MEDICARE, MEDICAID, SELFPAY ==
--- NOTE | 2023-02-15 13:32 | CT_ITS ---
STUDY: CT CHEST, ABDOMEN T PELVIS WITH CONTRAST REASON FOR EXAM: Male, 68 years old. H/O HEAD AND NECK CA RECENT 30 LB WT LOSS RADIATION DOSAGE (If Supplied By Facility): CTDIvol = ( 11.99 ) mGy, DLP = ( 1006.98 ) mGycm TECHNIQUE: Transaxial imaging was performed following intravenous administration of Oral and amp;amp; IV Readi-CAT and amp;amp; 100mL Isovue-370. Individualized dose optimization techniques were used for this CT. COMPARISON: No relevant priors. [No masses. COMPARISON: FINDINGS: CHEST There is hyperinflation of the lungs consistent with chronic obstructive lung disease (COPD). There are findings consistent with centrilobular emphysema. Scattered areas of pulmonary scarring seen. No infiltrates or effusions. There is no demonstrated pleural abnormality. Normal heart and pericardium. There are calcifications of the coronary arteries. Normal mediastinum. Normal hilar regions. Normal unenhanced pulmonary arteries. Normal aorta arch and descending thoracic aorta. Normal osseous structures. ABDOMEN Normal liver. There are multiple gallstones. Normal spleen. Normal pancreas. Normal bilateral adrenal glands. There are no acute abnormalities of the kidneys. Numerous small to moderate simple renal cysts are seen measuring as much as 5.1 cm. No gross stones. No hydronephrosis. Evaluation of the GI tract is limited by absence of oral contrast. Cannot exclude stomach wall thickening. No dilated loops of bowel or evidence for obstruction. Cannot exclude segmental thickening of the omalley of the small or large bowel. Cannot exclude enteritis or colitis. Marked diffuse fecal retention. Diverticulosis without definite diverticulitis. Appendix within normal limits. There is a small right inguinal hernia containing short segment of small bowel, with no evidence of obstruction. There is diffuse atherosclerotic calcification of the abdominal aorta, without a demonstrated aneurysm. Normal inferior vena cava. Normal retroperitoneum. PELVIS Normal urinary bladder. There is no pelvic fluid. There is no pelvic lymphadenopathy or mass lesion. There is diffuse atherosclerotic calcification of the pelvic arteries with elongation and tortuosity. Prominent degenerative disc disease at L5-S1, otherwise negative osseous structures. CT/CT Chest, Abd, Pel w/Contrast IMPRESSION: No acute abnormality. COPD. Cholelithiasis. Marked diffuse fecal retention. Small right inguinal hernia containing a short segment of small bowel with no evidence for bowel obstruction. Electronically Signed: Kun Valera MD at 16:38 EDT ,
[2023-02-15 14:03] LABS: CREATININE FINGERSTICK < 0.9 mg/dL (0.70-1.30); EGFR FINGERSTICK > 60.0000 mL/min (>60)
== END | disposition home or self-care (01) ==
LOC: CT 13:30
PROVIDERS: PCP Family Medicine Geriatric Medicine; Referring Provider Internal Medicine Hematology & Oncology; Visit Provider Internal Medicine Hematology & Oncology
DX: C76.0 Malignant neoplasm of head, face and neck (principal)
CPT/HCPCS: 71260; 74177; Q9967

== ENCOUNTER 2023-03-27 10:39 | Outpatient (RCR) | payer MEDICARE, MEDICAID, SELFPAY | END 2023-04-11 23:59 | LOC: NS 10:39 | PROVIDERS: PCP Family Medicine Geriatric Medicine; Visit Provider Internal Medicine Hematology & Oncology | DX: Z71.3 Dietary counseling and surveillance (principal); R63.4 Abnormal weight loss ==

== ENCOUNTER 2023-04-30 14:59 | Outpatient (RCR) | payer MEDICARE, MEDICAID, SELFPAY | END 2023-05-12 23:59 | LOC: NS 14:59 | PROVIDERS: PCP Family Medicine Geriatric Medicine; Visit Provider Internal Medicine Hematology & Oncology | DX: Z71.3 Dietary counseling and surveillance (principal); R63.4 Abnormal weight loss ==

== ENCOUNTER → 2023-05-23 | Outpatient (CLI) | payer MEDICARE, MEDICAID, SELFPAY ==
[2023-05-23 10:32] LABS: Absolute Lymphocyte Count 3.25 X10^3/uL (0.83-4.51); Absolute Neutrophil Count 5.5 X10^3/uL (2.0-7.7); Basophil% 0.9 % (0-1); Eosinophil# 0.31 X10^3/uL; Eosinophils% 2.9 % (0-5); Hematocrit 44.5 % (40-54); Hemoglobin 13.8 g/dL (13.0-16.5); Lymphocyte # 3.25 X10^3/ul (0.83-4.51); Lymphocyte % 30.7 % (19-41); Mean Corpuscular Hgb 27.1 pg (27.0-32.0); Mean Corpuscular Volume 87.3 fL (80-94); Monocyte# 1.36 X10^3/uL; Monocyte% 12.9 % (0-10); NRBC Flagged by Analyzer 0 % (0-5); Neutrophil # 5.51 X10^3/uL (2.7-7.7); Neutrophil % 52.1 % (47-70); Platelet Count 303 K/mm3 (150-450); RBC Distribution Width CV 15.8 % (11.6-14.6); RBC Distribution Width SD 50.4 fl (35.1-43.9); White Blood Count 10.6 K/mm3 (4.4-11.0)
[2023-05-23 11:03] LABS: Vitamin D,25 Hydroxy 32.8 ng/mL
[2023-05-23 11:16] LABS: ALB/GLOB Ratio 1.1 RATIO (0.9-2.4); AST(SGOT) 41 U/L (15-37); Alanine Aminotransfer ALT/SGPT 42 U/L (16-61); Albumin, Serum 4.1 g/dL (3.2-5.0); Alkaline Phosphatase 51 U/L (45-117); Anion Gap 6 (5-15); BUN 26 mg/dL (7-18); BUN/Creat Ratio 31.3 RATIO (10-20); Calcium,Total 9.1 mg/dL (8.5-10.1); Chloride 105 mmol/L (98-107); Creatinine, Serum 0.83 mg/dL (0.70-1.30); EST Glomerular Filtration Rate 98 mL/min (>60); Est Glom Filt Rate - Afr Amer 119 mL/min (>60); Globulin 3.6 g/dL (2.2-4.2); Glucose 102 mg/dL (74-106); PSA,Total- Diagnostic 1.44 ng/mL (0.0-4.0); Protein, Total 7.7 g/dL (6.4-8.2); Sodium Level 139 mmol/L (136-145); Thyroid Stim Hormone (TSH) 2.55 uIU/mL (0.358-3.74)
== END | disposition home or self-care (01) ==
LOC: POLAB3 09:30
PROVIDERS: PCP Family Medicine Geriatric Medicine; Visit Provider Family Medicine Geriatric Medicine
DX: Z12.5 Encounter for screening for malignant neoplasm of prostate (principal); I10 Essential (primary) hypertension; E55.9 Vitamin D deficiency, unspecified
CPT/HCPCS: 36415; 80053; 82306; 84153; 84443; 85025

== ENCOUNTER → 2023-11-26 | Outpatient (CLI) | payer MEDICARE, MEDICAID, SELFPAY ==
[2023-11-26 11:36] LABS: Absolute Lymphocyte Count 2.24 X10^3/uL (0.83-4.51); Absolute Neutrophil Count 3.9 X10^3/uL (2.0-7.7); Basophil# 0.04 X10^3/uL; Basophil% 0.5 % (0-1); Eosinophils% 2.7 % (0-5); Hematocrit 43.9 % (40-54); Hemoglobin 14.1 g/dL (13.0-16.5); Lymphocyte # 2.24 X10^3/ul (0.83-4.51); Lymphocyte % 30.5 % (19-41); Mean Corp Hgb Conc 32.1 g/dL (32-36); Mean Corpuscular Hgb 27.5 pg (27.0-32.0); Mean Corpuscular Volume 85.7 fL (80-94); Mean Platelet Vol. 9.4 fl (6.2-12.0); Monocyte# 0.95 X10^3/uL; Monocyte% 12.9 % (0-10); NRBC Flagged by Analyzer 0 % (0-5); Neutrophil % 53.3 % (47-70); Platelet Count 310 K/mm3 (150-450); RBC Distribution Width CV 14.6 % (11.6-14.6); Red Blood Count 5.12 M/mm3 (4.6-6.2); White Blood Count 7.3 K/mm3 (4.4-11.0)
[2023-11-26 12:07] LABS: Vitamin D,25 Hydroxy 37.3 ng/mL
[2023-11-26 12:14] LABS: AST(SGOT) 20 U/L (15-37); Alanine Aminotransfer ALT/SGPT 19 U/L (16-61); Albumin, Serum 3.9 g/dL (3.2-5.0); Alkaline Phosphatase 46 U/L (45-117); Anion Gap 5 (5-15); BUN 22 mg/dL (7-18); BUN/Creat Ratio 27.1 RATIO (10-20); Calcium,Total 9.5 mg/dL (8.5-10.1); Chloride 109 mmol/L (98-107); Cholesterol 168 mg/dL (200); Creatinine, Serum 0.81 mg/dL (0.70-1.30); EST Glomerular Filtration Rate 101 mL/min (>60); Est Glom Filt Rate - Afr Amer 122 mL/min (>60); Globulin 3.8 g/dL (2.2-4.2); Glucose 78 mg/dL (74-106); High Density Lipoprotein 69 mg/dL; Potassium 4.3 mmol/L (3.5-5.1); Protein, Total 7.7 g/dL (6.4-8.2); Sodium Level 140 mmol/L (136-145); Thyroid Stim Hormone (TSH) 1.23 uIU/mL (0.358-3.74); Triglycerides 66 mg/dL; Very Low Density Lipoprotein 13 mg/dL (5-40)
== END | disposition home or self-care (01) ==
PROVIDERS: PCP Family Medicine Geriatric Medicine; Referring Provider Family Medicine Geriatric Medicine; Visit Provider Family Medicine Geriatric Medicine
DX: E78.5 Hyperlipidemia, unspecified (principal); I10 Essential (primary) hypertension; E55.9 Vitamin D deficiency, unspecified
CPT/HCPCS: 36415; 80053; 80061; 82306; 84443; 85025

== ENCOUNTER 2023-12-10 10:30 | Day surgery (SDC) | payer MEDICARE, MEDICAID, SELFPAY ==
[2023-12-10 11:21] VITALS: BP 162/131; PULSE 106; RESP 16; TEMP 36.3; O2SAT 100; BMI 24.5
[2023-12-10] MEDS: Lactated Ringers 1,000 ML 15 ML IV (11:26)
[2023-12-10 11:28] VITALS: BP 155/117; PULSE 100
[2023-12-10 11:56] VITALS: BP 151/117
== END 2023-12-10 17:00 | disposition home or self-care (01) ==
LOC: EN 02-07 16:51
PROVIDERS: PCP Family Medicine Geriatric Medicine; Referring Provider Family Medicine Geriatric Medicine; Visit Provider Internal Medicine Gastroenterology
DX: Z53.8 Procedure and treatment not carried out for other reasons (principal)
CPT/HCPCS: J7120; J2405

== ENCOUNTER 2023-12-10 12:58 | Emergency (ER) | payer MEDICARE, MEDICAID, SELFPAY ==
[2023-12-10 12:58] VITALS: BP 135/90; PULSE 103; RESP 19; TEMP 36.2; O2SAT 99
--- NOTE | 2023-12-10 13:10 | EKG12_ITS ---
Test Reason : HIGH BP Blood Pressure : / mmHG Vent. Rate : 092 BPM Atrial Rate : 092 BPM P-R Int : 148 ms QRS Dur : 076 ms QT Int : 390 ms P-R-T Axes : 067 -09 026 degrees QTc Int : 482 ms Normal sinus rhythm Prolonged QT Abnormal ECG Confirmed by NEMO CID, RADHA [id number]), industrial editor KATRINA GRIMES ([id number]) on 12/13/2023 10:16:43 AM Referred By: Confirmed By:STEFANIA CHESTER MD
--- NOTE | 2023-12-10 13:10 | CT_ITS ---
STUDY: CT BRAIN WITHOUT CONTRAST REASON FOR EXAM: Male, 68 years old. Headache, htn. Headaches. RADIATION DOSAGE (If Supplied By Facility): CTDIvol = ( 44.99 ) mGy, DLP = ( 762.36 ) mGycm TECHNIQUE: Transaxial CT imaging of the brain was performed without administration of intravenous contrast material. Individualized dose optimization techniques were used for this CT. COMPARISON: No relevant priors. FINDINGS: Normal soft tissue structures. Normal calvarium. There is mild cerebral atrophy with widening of the extra-axial spaces and ventricular dilatation. Normal white matter tracts of the cerebral hemispheres. Normal basal ganglia and thalami. Normal brainstem. Normal cerebellum. There is no intracranial hemorrhage. There are no findings of an acute ischemic infarction. Atherosclerotic plaque formation of the vertebral arteries and cavernous portions of the internal carotid arteries bilaterally. Mucosal thickening of the left ethmoid sinus. CT/Brain/Head without Contrast IMPRESSION: Chronic involutional changes of the brain. Mucosal thickening of left ethmoid sinus. Electronically Signed: Jagdeep Cosby MD at 14:16 EDT ,
--- NOTE | 2023-12-10 13:13 | EX.ED.DYSGE1 ---
HPI History of Present Illness Chief Complaint: Hypertension Detail of Chief Complaint: Hypertension Informant: patient Narrative Narrative: Patient presents to the emergency department with complaint of hypertension. Patient was being prepared to have endoscopy with Dr. Riggins today. Patient noted to have elevated blood pressures and referred to the emergency department. Patient states that he has normally borderline hypertension but every time he goes to the doctors he gets nervous and his blood pressure gets elevated. Patient does have a slight headache since this morning but he has not eaten and he attributes it to that. Otherwise he feels well. He denies chest pain or shortness of breath. Patient denies recent illness. [facility] Medical History (Updated 12/10/23 @ 14:[address] Beny Ferrara, DO) Wears dentures High cholesterol Former smoker History of echocardiogram History of stress test Cancer GERD (gastroesophageal reflux disease) Anxiety and depression Dry mouth Oropharyngeal cancer Lumbar radiculopathy Low back pain Malignant neoplasm of overlapping sites of unspecified bronchus and lung Right groin pain Fatigue Vitamin D deficiency Hyperlipidemia Insomnia HTN (hypertension) Home Medications ?Medication ?Instructions ?Recorded ?Last Taken ?Type pravastatin 80 mg tablet 80 mg PO QHS 02/05/22 12/10/23 History Ensure Plus See Rx Instructions .Route 03/19/23 12/09/23 Rx .COMPLEX #90 BOTTLES enalapril maleate 10 mg tablet 10 mg PO DAILY 11/28/23 12/09/23 History sildenafil 100 mg tablet 100 mg PO DAILY PRN sexual activity 11/28/23 Unknown History Allergy/AdvReac Type Severity Reaction Status Date / Time No Known Allergies Allergy Verified 12/10/23 13:09 Family History (Updated 11/28/23 @ 11:18 by Daisy Jaffe) Father Cancer Grandmother Cancer Brother Colon cancer Surgical History History of lobectomy of lung History of throat surgery Hx of colonoscopy History of mandibular surgery History of carpal tunnel release Social History (Updated 11/28/23 @ 11:13 by Daisy Jaffe) household members: none housing: apartment current occupational status: disabled Smoking Status: Former smoker quit date: 03/13/01 pack-years: 20 substance use type: does not use ROS ROS ED ROS Narrative Hypertension Review of Systems ROS Unobtainable: other Constitutional Constitutional ED: Reports lethargy; Denies chills, fever(s), sweats or weight loss Eyes Eyes: Denies blurry vision, change in vision or diplopia ENT ENT ED: Denies rhinorrhea or sore throat Cardiovascular Cardiovascular: Denies chest pain, orthopnea or racing heartbeat Respiratory/Chest Respiratory/Chest: Denies cough, dyspnea, dyspnea on exertion, orthopnea or sputum Gastrointestinal Gastrointestinal: Denies abdominal pain, diarrhea, nausea or vomiting Genitourinary Genitourinary ED: Denies dysuria, hematuria or urinary frequency Musculoskeletal Musculoskeletal: Denies arthralgias, back pain, myalgias or neck pain Integumentary Denies abscess, Abrasions or rash Neurologic Neurologic: Reports headache(s); Denies weakness Psychiatric Psychiatric: Denies anxiety, depression or suicidal thoughts Endocrine Endocrinology: Denies polydipsia, polyphagia or polyuria Hematologic/Lymphatic Hematologic/Lymphatic: Denies easy bleeding, easy bruising or lymphadenopathy Allergic/Immunologic Allergic/Immunologic ED: Denies mouth swelling, tongue swelling or urticaria EXAM Physical Exam Const Vital Signs: 12/10/23 12:58 12/10/23 13:06 Temperature 97.1 F L Temperature Source Temporal Pulse Rate 103 H Respiratory Rate 19 H Respiratory Effort Normal Respiratory Pattern Normal Blood Pressure 135/90 H Blood Pressure Mean 105 Pulse Ox 99 Oxygen Delivery Method Room Air Positive well nourished and well developed General Appearance ED: well developed and NAD HEENT Reports TM's clear and moist mucous membranes normocephalic and atraumatic; Negative for trauma or tenderness Tympanic Membrane ED: Yes TM's clear Eyes PERRL and EOMs intact bilaterally General Eye ED: Negative for pale conjunctiva or scleral icterus Neck no lymphadenopathy, supple and no JVD General: Negative for tenderness Chest Wall inspection of chest normal and palpation of chest normal Chest: Negative for tenderness Resp normal respiratory effort and clear to auscultation bilaterally Effort and Inspection: Negative for respiratory distress or pain with movement Auscultation: Negative for rhonchi, wheezes or diminished lung sounds Cardio regular rate, regular rhythm, S1 normal heart sound, S2 normal heart sound and no murmurs Peripheral Pulses: pulses 2+ throughout GI normal to inspection, nondistended, normoactive bowel sounds, soft to palpation, non-tender, non-distended and no masses Back/Spine no CVA tenderness and no thoracic nor lumbar tenderness Extremity normal to inspection General Extremety ED: Negative for edema General Extremity: Negative for edema Neuro oriented x3, CN's II-XII intact bilaterally, no sensory deficits noted and gait normal Sensorium / Orientation: awake, alert, oriented to person, oriented to place and oriented to time Motor Exam: strength 5/5 throughout and strength abnormal Psych mental status grossly normal Skin no rashes or lesions noted and no wounds MDM MDM MDM Narrative Medical decision making narrative: Patient presents with elevated blood pressures from Endo. Patient tells me he is not on blood pressure medicine and that every time he goes to the doctor his blood pressure elevates because he is nervous. He has mild headache that he woke up with this morning and feels it is due to not eating. He denies chest pain or shortness of breath. He tells me the endoscopy was routine. IV line established. EKG obtained on arrival showed a sinus rhythm with rate of 92 bpm with slightly prolonged of 482. CBC with differential obtained showed a white count of 6.8 with hemoglobin 15.4 and platelet count of 241. Chemistries were unremarkable. Troponin normal at 10. CT scan of the brain without contrast was unremarkable. I discussed case with patient's primary care physician Dr. Quach. I did give patient 1 dose of Norvasc while in the department although his pressures were somewhat erratic as low as 135/92 140s 150s systolics and diastolics in the 1 teens to 120s. Patient can be seen tomorrow morning by his primary care physician Lab Data Attestation: I reviewed the patient's lab results. Labs: Laboratory Results - last 24 hr 12/10/23 13:19 WBC 6.8 RBC 5.64 Hgb 15.4 Hct 47.7 MCV 84.6 MCH 27.3 MCHC 32.3 RDW Std Deviation 44.4 H RDW Coeff of Jonn 14.5 Plt Count 241 MPV 9.8 Immature Gran % (Auto) 0.100 Neut % (Auto) 52.6 Lymph % (Auto) 34.1 [place] % (Auto) 11.3 H Eos % (Auto) 1.0 Baso % (Auto) 0.9 Absolute Neuts (auto) 3.6 Absolute Lymphs (auto) 2.32 Nucleated RBC % 0 Sodium 140 Potassium 3.6 Chloride 109 H Carbon Dioxide 25.0 Anion Gap 6 BUN 9 Creatinine 0.87 Est GFR (MDRD) Af Amer 113 Est GFR (MDRD) Non-Af 93 BUN/Creatinine Ratio 10.3 Glucose 99 Calcium 9.3 Troponin I High Sens 10 Radiography Diagnostic Testing: Clinical Impression(s) from Imaging Studies Brain CT 12/10/23 13:10 IMPRESSION: Chronic involutional changes of the brain. Mucosal thickening of left ethmoid sinus. Electronically Signed: Jagdeep Cosby MD at 14:16 EDT , EKG Initial EKG: Attestation: I personally reviewed and interpreted this EKG as follows: Comments: Sinus rhythm with ventricular rate 92 bpm and prolonged QT C of 432 Discharge Plan Triage Chief Complaint: Hypertension ED Provider: Beny Ferrara Dx/Rx/DC Orders Clinical Impression: Hypertension Instructions: Hypertension Dc Prescriptions: No Action pravastatin 80 mg tablet 80 mg PO QHS Patient Comments: TAKE 1 TABLET ONCE DAILY AT BEDTIME enalapril maleate 10 mg tablet 10 mg PO DAILY sildenafil 100 mg tablet 100 mg PO DAILY PRN (Reason: sexual activity) Rx Instructions: administer 30 minutes to 4 hours before activity Ensure Plus See Rx Instructions .ROUTE .COMPLEX Qty: 90 0RF Rx Instructions: 3 bottles daily Primary Care Provider: Suleiman Quach Chi Referrals: Suleiman Quach Chi, MD [Primary Care Provider] - 1 Day Activity Restrictions/Additional Instructions: Dr. Graham will see you tomorrow morning and determine what blood pressure medication to potentially start Print Language: Kyrgyz Disposition Disposition: Home, Self Care
[2023-12-10] MEDS: 0.9% Normal Saline (1000mL) 1,000 ML 150 ML IV (13:18)
[2023-12-10 13:30] LABS: Absolute Lymphocyte Count 2.32 X10^3/uL (0.83-4.51); Absolute Neutrophil Count 3.6 X10^3/uL (2.0-7.7); Basophil# 0.06 X10^3/uL; Basophil% 0.9 % (0-1); Eosinophil# 0.07 X10^3/uL; Hematocrit 47.7 % (40-54); Hemoglobin 15.4 g/dL (13.0-16.5); Lymphocyte # 2.32 X10^3/ul (0.83-4.51); Lymphocyte % 34.1 % (19-41); Mean Corp Hgb Conc 32.3 g/dL (32-36); Mean Corpuscular Hgb 27.3 pg (27.0-32.0); Mean Corpuscular Volume 84.6 fL (80-94); Mean Platelet Vol. 9.8 fl (6.2-12.0); Monocyte# 0.77 X10^3/uL; Monocyte% 11.3 % (0-10); NRBC Flagged by Analyzer 0 % (0-5); Neutrophil # 3.57 X10^3/uL (2.7-7.7); Neutrophil % 52.6 % (47-70); Platelet Count 241 K/mm3 (150-450); RBC Distribution Width CV 14.5 % (11.6-14.6); RBC Distribution Width SD 44.4 fl (35.1-43.9); Red Blood Count 5.64 M/mm3 (4.6-6.2); White Blood Count 6.8 K/mm3 (4.4-11.0)
[2023-12-10 13:50] LABS: Anion Gap 6 (5-15); BUN 9 mg/dL (7-18); BUN/Creat Ratio 10.3 RATIO (10-20); Calcium,Total 9.3 mg/dL (8.5-10.1); Chloride 109 mmol/L (98-107); Creatinine, Serum 0.87 mg/dL (0.70-1.30); EST Glomerular Filtration Rate 93 mL/min (>60); Est Glom Filt Rate - Afr Amer 113 mL/min (>60); Glucose 99 mg/dL (74-106); Potassium 3.6 mmol/L (3.5-5.1); Sodium Level 140 mmol/L (136-145); Troponin-I HS 10 pg/mL (3.0-78.0)
[2023-12-10 14:27] VITALS: BP 144/123; PULSE 72; RESP 16; TEMP 36.5; O2SAT 96
[2023-12-10] MEDS: amLODIPine 5 MG Tablet PO (14:29)
== END 2023-12-10 14:38 | disposition home or self-care (01) ==
PROVIDERS: Emergency Provider Emergency Medicine; PCP Family Medicine Geriatric Medicine; Visit Provider Emergency Medicine
DX: I10 Essential (primary) hypertension (principal); Z87.891 Personal history of nicotine dependence; E78.5 Hyperlipidemia, unspecified; K21.9 Gastro-esophageal reflux disease without esophagitis
CPT/HCPCS: 70450; 80048; 84484; 85025; 93005; 99283; J7030; A4216

== ENCOUNTER → 2024-06-22 | Outpatient (CLI) | payer MEDICARE, MEDICAID, SELFPAY ==
--- NOTE | 2024-06-22 09:53 | US_ITS ---
PROCEDURE: HEAD/NECK SOFT TISSUE REASON FOR EXAM: Lipoma. COMPARISON: None. TECHNIQUE: Multiple sonographic images in the posterior neck region is performed including color Doppler. FINDINGS: There is a well-circumscribed area of hypoechogenicity along the palpable region of the posterior neck measuring 5.4 x 4.4 x 1.4 cm likely relating to a lipoma. No abnormal vascular flow is present. US/Head/Neck Soft Tissue IMPRESSION: Findings as above likely relating to a lipoma. [facility]
[2024-06-22 11:20] LABS: Absolute Lymphocyte Count 2.93 X10^3/uL (0.83-4.51); Absolute Neutrophil Count 4.7 X10^3/uL (2.0-7.7); Basophil# 0.09 X10^3/uL; Basophil% 0.9 % (0-1); Eosinophil# 0.19 X10^3/uL; Hematocrit 44.6 % (40-54); Hemoglobin 14.5 g/dL (13.0-16.5); Lymphocyte # 2.93 X10^3/ul (0.83-4.51); Lymphocyte % 30.6 % (19-41); Mean Corp Hgb Conc 32.5 g/dL (32-36); Mean Corpuscular Volume 86.3 fL (80-94); Mean Platelet Vol. 10.4 fl (6.2-12.0); Monocyte# 1.64 X10^3/uL; Monocyte% 17.2 % (0-10); NRBC Flagged by Analyzer 0 % (0-5); Neutrophil # 4.67 X10^3/uL (2.7-7.7); Neutrophil % 48.9 % (47-70); POSITIVE DIFFERENTIAL YES; Platelet Count 269 K/mm3 (150-450); RBC Distribution Width CV 15.6 % (11.6-14.6); RBC Distribution Width SD 48.4 fl (35.1-43.9); Red Blood Count 5.17 M/mm3 (4.6-6.2); White Blood Count 9.6 K/mm3 (4.4-11.0)
[2024-06-22 11:49] LABS: Vitamin D,25 Hydroxy 24.1 ng/mL
[2024-06-22 11:55] LABS: AST(SGOT) 30 U/L (15-37); Alanine Aminotransfer ALT/SGPT 41 U/L (16-61); Albumin, Serum 3.8 g/dL (3.2-5.0); Alkaline Phosphatase 47 U/L (45-117); Anion Gap 8 (5-15); BUN 28 mg/dL (7-18); BUN/Creat Ratio 35.5 RATIO (10-20); Calcium,Total 9.5 mg/dL (8.5-10.1); Chloride 107 mmol/L (98-107); Cholesterol 200 mg/dL (200); Creatinine, Serum 0.79 mg/dL (0.70-1.30); EST Glomerular Filtration Rate 104 mL/min (>60); Est Glom Filt Rate - Afr Amer 126 mL/min (>60); Glucose 94 mg/dL (74-106); High Density Lipoprotein 71 mg/dL; PSA,Total - Annual Screen 1.13 ng/mL (0.00-4.00); Potassium 4.2 mmol/L (3.5-5.1); Protein, Total 7.8 g/dL (6.4-8.2); Sodium Level 140 mmol/L (136-145); Triglycerides 113 mg/dL; Very Low Density Lipoprotein 23 mg/dL (5-40)
[2024-06-22 12:00] LABS: Differential Indicated SCAN CRITERIA MET
[2024-06-22 12:22] LABS: Polychromasia 1+
[2024-06-22 12:23] LABS: Platelet Estimate A (ADEQ)
== END | disposition home or self-care (01) ==
LOC: US 09:47
PROVIDERS: PCP Family Medicine Geriatric Medicine; Referring Provider Family Medicine Geriatric Medicine; Visit Provider Family Medicine Geriatric Medicine
DX: D17.0 Benign lipomatous neoplasm of skin and subcutaneous tissue of head, face and neck (principal); I10 Essential (primary) hypertension; E55.9 Vitamin D deficiency, unspecified; E78.5 Hyperlipidemia, unspecified; Z12.5 Encounter for screening for malignant neoplasm of prostate
CPT/HCPCS: 36415; 76536; 80053; 80061; 82306; 84153; 84443; 85025; G0103

== ENCOUNTER → 2024-12-10 | Outpatient (CLI) | payer MEDICARE, MEDICAID, SELFPAY ==
[2024-12-10 10:07] LABS: Hematocrit 44.0 % (40-54); Hemoglobin 14.3 g/dL (13.0-16.5); Immature Granulocytes Count 0.010 X10^3/uL (0.0-0.0); Mean Corp Hgb Conc 32.5 g/dL (32-36); Mean Corpuscular Volume 85.1 fL (80-94); Mean Platelet Vol. 9.5 fl (6.2-12.0); NRBC Flagged by Analyzer 0 % (0-5); Platelet Count 233 K/mm3 (150-450); RBC Distribution Width CV 14.4 % (11.6-14.6); RBC Distribution Width SD 44.2 fl (35.1-43.9); Red Blood Count 5.17 M/mm3 (4.6-6.2); White Blood Count 7.6 K/mm3 (4.4-11.0)
[2024-12-10 12:36] LABS: AST(SGOT) 21 U/L (<=37); Alanine Aminotransfer ALT/SGPT 10 U/L (<=46); Albumin, Serum 4.4 g/dL (3.4-4.8); Alkaline Phosphatase 43 U/L (40-129); Anion Gap 15 (5-15); BUN 10 mg/dL (4-19); BUN/Creat Ratio 10.6 RATIO (10-20); Calcium,Total 9.7 mg/dL (7.6-11.0); Carbon Dioxide 21.4 mmol/L (21.0-32.0); Chloride 105 mmol/L (98-108); Cholesterol 182 mg/dL (<=200); Globulin 2.8 g/dL (2.2-4.2); Glucose 103 mg/dL (70-99); Low Density Lipoprotein Calc. 94 mg/dL; Potassium 3.8 mmol/L (3.3-5.1); Triglycerides 80 mg/dL; Very Low Density Lipoprotein 16 mg/dL (5-40); Vitamin D,25 Hydroxy 38.5 ng/mL (30-100); cholesterol:hdl ratio screen 2.53
[2024-12-10 17:49] LABS: Xtra Tube Kwok EXTRA TUBE
== END | disposition home or self-care (01) ==
LOC: POLAB3 09:47
PROVIDERS: PCP Family Medicine Geriatric Medicine; Visit Provider Family Medicine Geriatric Medicine
DX: I10 Essential (primary) hypertension (principal); E55.9 Vitamin D deficiency, unspecified
CPT/HCPCS: 36415; 80053; 80061; 82306; 84443; 85025